=== PATIENT | female | born 1955 | race Hispanic/Latino ===

== ENCOUNTER 2019-10-02 08:07 | Emergency (ER) | payer OTHER ==
[2019-10-02 08:34] VITALS: BP 132/63
--- NOTE | 2019-10-02 08:57 | Emergency Department Report ---
ED ENT HPI - General Chief complaint: Skin/Abscess/Foreign Body Stated complaint: RT EAR POSS INFECTED//DISCOMFORT Time Seen by Provider: 10/02/19 08:42 Source: patient Mode of arrival: Ambulatory Limitations: No Limitations - History of Present Illness Initial comments: This is a 63-year-old -[place] female who presents to the emergency room with suspected foreign object in right ear. Patient also reports pain to her right ear. States she broke the tip of a Q-tip in her ear 1 week ago and unsuccessful removing it. Reports muffled hearing out of right ear. States she has applied Debrox earwax removal with no change in symptoms. Denies otorrhea or dizziness. MD complaint: ear pain Onset/Timin -: week(s) Location: R ear Severity: moderate Severity scale (0 -10): 7 Quality: aching Consistency: constant Improves with: none Worsens with: none Context- Ear: direct trauma Associated Symptoms: hearing loss. denies: fever, cough, tinnitus, discharge from ear, rhinorrhea - Related Data Previous Rx's Medication Instructions Recorded Last Taken Type HYDROcodone/APAP 5-325 [[place] 1 each PO Q6HR PRN #20 tablet 09/17/13 Unknown Rx 5/325 mg] diazePAM TAB [Valium] 5 mg PO TID PRN #15 tablet 09/17/13 Unknown Rx Neomy/Polymyx B/Hc Otic Susp 4 drops AD TID #1 bottle 10/02/19 Unknown Rx [Cortisporin (Otic) Susp] Allergies Allergy/AdvReac Type Severity Reaction Status Date / Time aspirin Allergy Unknown Verified 09/17/13 17:19 ED Dental HPI - General Chief complaint: Skin/Abscess/Foreign Body Stated complaint: RT EAR POSS INFECTED//DISCOMFORT Time Seen by Provider: 10/02/19 08:42 Source: patient Mode of arrival: Ambulatory Limitations: No Limitations - Related Data Previous Rx's Medication Instructions Recorded Last Taken Type HYDROcodone/APAP 5-325 [[place] 1 each PO Q6HR PRN #20 tablet 09/17/13 Unknown Rx 5/325 mg] diazePAM TAB [Valium] 5 mg PO TID PRN #15 tablet 09/17/13 Unknown Rx Neomy/Polymyx B/Hc Otic Susp 4 drops AD TID #1 bottle 10/02/19 Unknown Rx [Cortisporin (Otic) Susp] Allergies Allergy/AdvReac Type Severity Reaction Status Date / Time aspirin Allergy Unknown Verified 09/17/13 17:19 ED Review of Systems ROS: Stated complaint: RT EAR POSS INFECTED//DISCOMFORT Other details as noted in HPI Constitutional: denies: chills, fever ENT: ear pain (right). denies: throat pain Respiratory: denies: cough, shortness of breath, wheezing Cardiovascular: denies: chest pain, palpitations Gastrointestinal: denies: abdominal pain, nausea, diarrhea Musculoskeletal: denies: back pain, joint swelling, arthralgia Skin: denies: rash, lesions Neurological: denies: headache, weakness, paresthesias Psychiatric: denies: anxiety, depression ED Past Medical Hx - Past Medical History Previous Medical History?: Yes Hx Hypertension: Yes Hx Diabetes: Yes (possible) Additional medical history: Gout - Surgical History Past Surgical History?: Yes Additional Surgical History: Ectopic - Social History Smoking Status: Current Every Day Smoker Substance Use Type: None - Medications Home Medications: Home Medications Medication Instructions Recorded Confirmed Last Taken Type HYDROcodone/APAP 5-325 [[place] 1 each PO Q6HR PRN #20 tablet 09/17/13 Unknown Rx 5/325 mg] diazePAM TAB [Valium] 5 mg PO TID PRN #15 tablet 09/17/13 Unknown Rx Neomy/Polymyx B/Hc Otic Susp 4 drops AD TID #1 bottle 10/02/19 Unknown Rx [Cortisporin (Otic) Susp] ED Physical Exam - General Limitations: No Limitations General appearance: alert, in no apparent distress - ENT ENT exam: Present: normal orophraynx, mucous membranes moist. Absent: normal external ear exam (Right ear, fuzzy white foreign object) - Respiratory Respiratory exam: Present: normal lung sounds bilaterally. Absent: respiratory distress - Cardiovascular Cardiovascular Exam: Present: regular rate, normal rhythm. Absent: systolic murmur, diastolic murmur, rubs, gallop - GI/Abdominal GI/Abdominal exam: Present: soft, normal bowel sounds - Extremities Exam Extremities exam: Present: normal inspection - Neurological Exam Neurological exam: Present: alert, oriented X3, normal gait - Psychiatric Psychiatric exam: Present: normal affect, normal mood - Skin Skin exam: Present: warm, dry, intact, normal color. Absent: rash ED Course Vital Signs 10/02/19 08:33 Temperature 98.0 F Pulse Rate 85 Respiratory 20 Rate Blood Pressure 132/63 O2 Sat by Pulse 99 Oximetry - Foreign Body Removal Ear Location: ear canal (R) Foreign Body Suspected: other (See above every 2) If Insect Suspected: no insect seen Foreign Body Removed: no Foreign Body Removal Technique: forceps Tympanic Membrane Intact: Yes Patient Tolerated Procedure: well Complications: none ED Medical Decision Making - Medical Decision Making 63-year-old female presents with otalgia to right with suspected foreign body for 1 week. Vitals are stable and patient in no acute distress. Past medical history of gout and hypertension. There is a fuzzy white foreign object in her right ear which appears to be the tip of a Q-tip. Unsuccessful removal foreign body with alligator forceps. Patient tolerated procedure well. Start Cortisporin eardrops 4 drops TID x 7 days. Referral to ENT for continued care. Patient discharged home with strict return instructions. Critical care attestation.: If time is entered above; I have spent that time in minutes in the direct care of this critically ill patient, excluding procedure time. ED Disposition Clinical Impression: Otalgia of right ear Foreign body of ear, right Qualifiers: Encounter type: initial encounter Qualified Code(s): T16.1XXA - Foreign body in right ear, initial encounter Disposition: DC- TO HOME OR SELFCARE Is pt being admited?: No Condition: Stable Instructions: Ear Foreign Body (ED) Additional Instructions: Follow-up with ear nose and throat doctor from the list provided below in the referral section. Start antibiotic eardrops as prescribed. Return to the emergency room with worsening symptoms such as drainage from right ear. Prescriptions: Neomy/Polymyx B/Hc Otic Susp [Cortisporin (Otic) Susp] 4 drops AD TID #1 bottle Referrals: BUFFY MCBRIDE MD [Primary Care Provider] - 3-5 Days [facility] [Provider Group] - 3-5 Days Poonam Quezada [Other] - 3-5 Days Time of Disposition: 09:23
== END 2019-10-02 09:32 | disposition home or self-care (01) ==
LOC: ED 08:07
DX: T16.1XXA Foreign body in right ear, initial encounter (principal); H92.01 Otalgia, right ear; X58.XXXA Exposure to other specified factors, initial encounter; Y93.89 Activity, other specified; Y92.89 Other specified places as the place of occurrence of the external cause; Y99.8 Other external cause status
CPT/HCPCS: 99281

== ENCOUNTER 2021-07-13 13:38 | Emergency (ER) | payer OTHER ==
[2021-07-13 14:02] VITALS: BP 138/61
[2021-07-13] MEDS ORDERED: HYDROcodone/ACETAMINOPHEN 5-325 MG TAB PO ONE (14:44)
--- NOTE | 2021-07-13 16:10 | XRay Report ---
LEFT HAND 3 VIEWS LEFT ELBOW 3 VIEWS LEFT SHOULDER 3 VIEWS INDICATION: Left upper extremity pain after fall. COMPARISON: No relevant prior imaging study available. FINDINGS: Left hand: No acute fracture or dislocation. Mild osteoarthrosis. Left elbow: There is a minimally impacted radial neck fracture with joint effusion. Degenerative malik ges are noted. There is calcific tendinitis/heterotopic ossification in the region of the common exte nsor tendon. Left shoulder: No acute, displaced fracture or dislocation is seen. There is mild acromioclavicular d egenerative change. IMPRESSION: 1. Minimally displaced/impacted radial neck fracture with associated left elbow effusion/hemarthrosis . No other acute traumatic findings. Signer Name: Savage Nation MD Signed: 07/13/2021 4:05 PM Workstation Name: [id number]
--- NOTE | 2021-07-13 16:11 | Emergency Department Report ---
ED Fall HPI - General Chief Complaint: Fall Stated Complaint: INJURY TO ARM Time Seen by Provider: 07/13/21 14:43 Source: patient Mode of arrival: Ambulatory - History of Present Illness Initial Comments: Patient is a 65-year-old female presents emergency room complaints of a fall that occurred last night. Patient states that she believes she tripped over a carpet. She states that she fell onto her left arm. She is having left shoulder, left elbow, left hand pain. She states her pain is worse with movement or when she tries to lift her arm up. She denies any numbness or weakness but does have pain with using the arm. Allergy to aspirin. She denies any previous fractures or surgeries of her left arm. - Related Data Previous Rx's Medication Instructions Recorded Last Taken Type HYDROcodone/APAP 5-325 [[place] 1 each PO Q6HR PRN #20 tablet 09/17/13 Unknown Rx 5/325 mg] diazePAM TAB [Valium] 5 mg PO TID PRN #15 tablet 09/17/13 Unknown Rx Neomy/Polymyx B/Hc Otic Susp 4 drops AD TID #1 bottle 10/02/19 Unknown Rx [Cortisporin (Otic) Susp] HYDROcodone/APAP 5-325 [[place] 1 each PO Q6HR PRN #12 tablet 07/13/21 Unknown Rx 5/325] Allergies Allergy/AdvReac Type Severity Reaction Status Date / Time aspirin Allergy Unknown Verified 09/17/13 17:19 ED Review of Systems ROS: Stated complaint: INJURY TO ARM Other details as noted in HPI Comment: All other systems reviewed and negative ED Past Medical Hx - Past Medical History Hx Hypertension: Yes Hx Diabetes: Yes (possible) Additional medical history: Gout - Surgical History Additional Surgical History: Ectopic - Social History Smoking Status: Current Every Day Smoker Substance Use Type: None - Medications Home Medications: Home Medications Medication Instructions Recorded Confirmed Last Taken Type HYDROcodone/APAP 5-325 [[place] 1 each PO Q6HR PRN #20 tablet 09/17/13 Unknown Rx 5/325 mg] diazePAM TAB [Valium] 5 mg PO TID PRN #15 tablet 09/17/13 Unknown Rx Neomy/Polymyx B/Hc Otic Susp 4 drops AD TID #1 bottle 10/02/19 Unknown Rx [Cortisporin (Otic) Susp] HYDROcodone/APAP 5-325 [[place] 1 each PO Q6HR PRN #12 tablet 07/13/21 Unknown Rx 5/325] ED Physical Exam - General Limitations: No Limitations General appearance: alert, in no apparent distress - Head Head exam: Present: atraumatic, normocephalic - Eye Eye exam: Present: normal appearance - ENT ENT exam: Present: mucous membranes moist - Extremities Exam Extremities exam: Present: other (ttp to the left dorsal hand, left elbow, and left anterior shoulder, small abrasion to the left elbow, decreased flexion of the left elbow and shoulder secondary to pain, no obvoius deformity, clavicles are equal, no clavicular ttp, no sulcus sign, neurovascularly intact) - Neurological Exam Neurological exam: Present: alert, oriented X3 - Psychiatric Psychiatric exam: Present: normal affect, normal mood - Skin Skin exam: Present: warm, dry ED Course Vital Signs 07/13/21 07/13/21 13:59 15:03 Temperature 98.3 F Pulse Rate 99 H Respiratory 20 20 Rate Blood Pressure 138/61 O2 Sat by Pulse 98 Oximetry ED Medical Decision Making - Radiology Data Radiology results: report reviewed Ordering Physician: MIGUELITO TESFAYE Date of Service: 07/13/21 Procedure(s): XR hand 3+V LT Accession Number(s): [id number] cc: MIGUELITO TESFAYE Fluoro Time In Minutes: LEFT HAND 3 VIEWS LEFT ELBOW 3 VIEWS LEFT SHOULDER 3 VIEWS INDICATION: Left upper extremity pain after fall. COMPARISON: No relevant prior imaging study available. FINDINGS: Left hand: No acute fracture or dislocation. Mild osteoarthrosis. Left elbow: There is a minimally impacted radial neck fracture with joint effusion. Degenerative changes are noted. There is calcific tendinitis/heterotopic ossification in the region of the common extensor tendon. Left shoulder: No acute, displaced fracture or dislocation is seen. There is mild acromioclavicular degenerative change. IMPRESSION: 1. Minimally displaced/impacted radial neck fracture with associated left elbow effusion/hemarthrosis. No other acute traumatic findings. Signer Name: Savage Nation MD Signed: 07/13/2021 4:05 PM Workstation Name: [id number] Transcribed By: EDITH Dictated By: Savage Nation MD Electronically Authenticated By: Savage Nation MD Signed Date/Time: 07/13/21 1605 DD/ 160 TD/TT: - Medical Decision Making Patient is a 65-year-old female presents emergency room complaints of a fall that occurred last night. Patient states that she believes she tripped over a carpet. She states that she fell onto her left arm. She is having left shoulder, left elbow, left hand pain. She states her pain is worse with movement or when she tries to lift her arm up. She denies any numbness or weakness but does have pain with using the arm. Allergy to aspirin. She denies any previous fractures or surgeries of her left arm. Vitals are stable. On exam:ttp to the left dorsal hand, left elbow, and left anterior shoulder, small abrasion to the left elbow, decreased flexion of the left elbow and shoulder secondary to pain, no obvoius deformity, clavicles are equal, no clavicular ttp, no sulcus sign, neurovascularly intact. X-ray left arm, left hand, left shoulder: 1. Minimally displaced/impacted radial neck fracture with associated left elbow effusion/hemarthrosis. No other acute traumatic findings. Patient placed in long-arm posterior splint and sling and remained neurovascularly intact. Discussed the importance of outpatient orthopedic follow-up. Advised patient Please take medication as prescribed. Follow-up with orthopedic doctor. Return to emergency room for any new or worsening symptoms. Critical care attestation.: If time is entered above; I have spent that time in minutes in the direct care of this critically ill patient, excluding procedure time. ED Disposition Clinical Impression: Radial neck fracture Qualifiers: Encounter type: initial encounter Fracture type: closed Fracture alignment: displaced Laterality: left Qualified Code(s): S52.132A - Displaced fracture of neck of left radius, initial encounter for closed fracture Elbow effusion Qualifiers: Laterality: left Qualified Code(s): M25.422 - Effusion, left elbow Fall Qualifiers: Encounter type: initial encounter Qualified Code(s): W19.XXXA - Unspecified fall, initial encounter Disposition: HOME / SELF CARE / HOMELESS Is pt being admited?: No Does the pt Need Aspirin: No Condition: Stable Instructions: Radial Head Fracture Additional Instructions: Please take medication as prescribed. Follow-up with orthopedic doctor. Return to emergency room for any new or worsening symptoms. Prescriptions: HYDROcodone/APAP 5-325 [[place] 5/325] 1 each PO Q6HR PRN #12 tablet PRN Reason: Pain Referrals: JACKLYN CARRERA MD [Primary Care Provider] - 3-5 Days CINDI RENEE MD [Staff Physician] - 3-5 Days Time of Disposition: 16:16 Print Language: MALTESE
== END 2021-07-13 17:04 | disposition home or self-care (01) ==
LOC: ED 13:38
DX: S52.132A Displaced fracture of neck of left radius, initial encounter for closed fracture (principal); M25.422 Effusion, left elbow; I10 Essential (primary) hypertension; E11.9 Type 2 diabetes mellitus without complications; M10.9 Gout, unspecified; F17.200 Nicotine dependence, unspecified, uncomplicated; Z91.09 Other allergy status, other than to drugs and biological substances; Z79.899 Other long term (current) drug therapy; Z98.890 Other specified postprocedural states; W19.XXXA Unspecified fall, initial encounter; W18.09XA Striking against other object with subsequent fall, initial encounter; Y93.89 Activity, other specified; Y92.89 Other specified places as the place of occurrence of the external cause; Y99.8 Other external cause status
CPT/HCPCS: 99283

== ENCOUNTER 2021-10-27 10:13 | Emergency (ER) | payer OTHER ==
[2021-10-27 10:37] VITALS: BP 164/77
--- NOTE | 2021-10-29 18:48 | Electrocardiograph Report ---
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
== END 2021-10-27 16:00 | disposition left against medical advice (07) ==
LOC: ED 10:13
DX: R07.9 Chest pain, unspecified (principal); Z53.21 Procedure and treatment not carried out due to patient leaving prior to being seen by health care provider
CPT/HCPCS: 93005